=== PATIENT | female | born 1970 | race Caucasian/White ===

== ENCOUNTER 2017-04-28 10:45 | Day surgery (SDC) | payer BC ==
[~2017-04-28 10:45] MED LIST: ACETAMINOPHEN 500 MG TABLET PO PRN; HYDROmorphone HCL 2 MG/ML VIAL IV PRN; MAG HYDROX/ALUMINUM HYD/SIMETH 30 ML UDC PO PRN; MAGNESIUM HYDROXIDE 30 ML UDC PO PRN; ONDANSETRON HCL/PF 2 MG/ML VIAL IV PRN; PROMETHAZINE HCL 25 MG in DEXTROSE 5 % IN WATER 50 ML IV PRN; RINGER'S SOLUTION,LACTATED 1,000 ML IV PRN; ROPIVACAINE HCL/PF 40 MG in NORMAL SALINE 16 ML IJ PRN; ZOLPIDEM TARTRATE 5 MG TABLET PO PRN; ceFAZolin SODIUM 1 GM VIAL IV PRN; diphenhydrAMINE HCL 50 MG/ML VIAL IV PRN; oxyCODONE HCL/ACETAMINOPHEN 1 TAB TABLET PO PRN
[2017-04-28] MEDS ORDERED: RINGER'S SOLUTION,LACTATED 1,000 ML IV ONE (11:29)
[2017-04-28] MEDS ORDERED: BUPIVACAINE HCL/EPINEPHRINE 50 ML VIAL IJ ONE (12:45)
--- NOTE | 2017-04-28 13:33 | OR ---
Operative Report - Dictated Report Narrative: Date: 04/28/2017 Physician: Gary Logan M.D. Parts Analyst: Feliz Chairez PA-C Preoperative diagnosis: Left Knee medial meniscus tear Postoperative diagnosis: Left Knee medial meniscus tear Procedure: Left knee arthroscopy with partial medial meniscectomy Anesthesia: MAC Plus local Complications: None Estimated blood loss: Minimal Tourniquet time: None Specimens: None Retained implants: None Drains: None Indications: Norma is a 46 year-old female who has been followed in my clinic with complaints of knee pain consistent with suspected medial meniscal pathology. Physical exam and diagnostic imaging were consistent with these complaints and concern for medial meniscal pathology. Conservative measures have failed including, but not limited to, passage of time, activity modification, medications, and injections. The risks, benefits, and alternatives were discussed in clinic. The risks being , bleeding, infection, blood clots, nerve, tendon, ligament, blood vessel injury, persistent pain, arthrosis, need for additional procedures, and persistent symptoms. Consent was obtained in the clinic. Procedure: After marking the correct extremity in the preoperative holding area, a timeout was performed in the operating room. IV antibiotics consisting of 1 g of Ancef were administered prior to the procedure. A well-padded tourniquet was applied to the operative upper thigh. The leg was prepped and draped in a standard sterile fashion. 0.5% Marcaine with epinephrine was infused into the projected portal sites as well as the intra-articular space. A ramona incision was made for inferior lateral portal. A blunt trocar and cannula was introduced into the knee. The suprapatellar pouch revealed no loose bodies. The medial patella facet showed no significant chondral changes. The lateral patella facet showed no significant chondral changes. The trochlea showed rate 1 chondral change. The medial gutter revealed no loose bodies. The medial joint space was then entered utilizing a lateral post and valgus stress. A spinal needle was utilized for guidance into placement of an anterior medial portal. This was placed just superior to the medial meniscus ensuring that we could reach the posterior aspect of the medial joint space. A ramona incision was made in the site, and the probe was introduced to the knee. The medial joint space was examined, and the medial femoral condyle showed and no significant chondral change. The medial tibial plateau showed grade 1 chondral change. The medial meniscus demonstrated a horizontal cleavage tear through the posterior horn with a large unstable flap. The notch was then examined, and the ACL was noted to be intact. The PCL was noted to be intact. The lateral joint space was then examined using a varus force in the figure 4 position. Lateral femoral condyle showed no significant chondral change. Lateral tibial plateau showed no significant chondral change. The lateral meniscus showed no pathology. The lateral gutter showed no loose bodies. Having identified the surgical pathology , a series of biters and analia were utilized in order to debride the medial meniscus. Once it was felt that we adequately addressed the pathology, the knee was thoroughly irrigated. The fluid was evacuated ensuring that we have removed all meniscal, chondral, and any other loose bodies. A final evaluation of the joint showed no additional pathology. The fluid was then evacuated of the knee, and the trocar and camera were removed from the joint. The wounds were closed with interrupted nylon after placing 20 mL of 0.2% ropivacaine into the joint. Dressings consisting of Xeroform, 4 x 4, ABD, soft roll, and an Yuriy were applied. All sponge, needle, blade, and instrument counts were correct prior to closing the wounds. The patient was awoken and transferred to the post -anesthesia care unit in stable condition.
[2017-04-28 14:35] VITALS: BP 110/736
[2017-04-28] MEDS ORDERED: SENNOSIDES/DOCUSATE SODIUM 1 TAB TABLET PO SCH (21:00)
== END 2017-04-28 10:46 | disposition home or self-care (01) ==
LOC: AMB 10:45
PROVIDERS: ATTEND Orthopaedic Surgery
PROC: 0SBD4ZZ Excision of Left Knee Joint, Percutaneous Endoscopic Approach (ICD-10-PCS; principal; 2017-04-28 14:00)
DX: M23.222 Derangement of posterior horn of medial meniscus due to old tear or injury, left knee (principal); E03.9 Hypothyroidism, unspecified; K21.9 Gastro-esophageal reflux disease without esophagitis; J45.909 Unspecified asthma, uncomplicated; F41.9 Anxiety disorder, unspecified; F32.9 Major depressive disorder, single episode, unspecified; F17.200 Nicotine dependence, unspecified, uncomplicated; Z68.24 Body mass index [BMI] 24.0-24.9, adult